=== PATIENT | male | born 1970 | race Caucasian/White ===

== ENCOUNTER 2017-05-11 04:08 | Emergency (ER) | payer SELFPAY ==
[~2017-05-11] VITALS: Ht 175.3 cm; Wt 81.6 kg
[~2017-05-11 04:08] MED LIST: IBUP-45 PO
[2017-05-11] MEDS ORDERED: KETOROLAC TROMETHAMINE 30 MG INJ IM ONE (04:45)
--- NOTE | 2017-05-11 04:49 | NUR ---
Patient discharged to home in stable conditon. Written and verbal after care instructions given. Patient verbalizes understanding of instructions.
[2017-05-11] MEDS ORDERED: KETOROLAC TROMETHAMINE 30 MG INJ ONE (04:57)
== END 2017-05-11 04:57 | disposition home or self-care (01) ==
LOC: ER 04:10
DX: G89.29 Other chronic pain (principal); M25.511 Pain in right shoulder; M25.512 Pain in left shoulder
CPT/HCPCS: 96372; 99283; A4663; J1885

== ENCOUNTER 2017-10-13 20:10 | Emergency (ER) | payer SELFPAY ==
--- NOTE | 2017-10-13 21:05 | NUR ---
PATIENT LEFT BEFORE BEING TRIAGED. PATIENT CAME IN TO THE ER FOR ASSISTANCE W/ REMOVAL OF RING FROM HIM RIGHT RING FINGER. PATIENT WAS ABLE TO REMOVE THE RING, AND NO LONGER REQUIRED ER SERVICES. ER MD IS AWARE. PATIENT NOTED IN NO ACUTE DISTRESS.
== END 2017-10-13 21:08 | disposition left against medical advice (07) ==
LOC: ER 20:11
DX: Z53.21 Procedure and treatment not carried out due to patient leaving prior to being seen by health care provider (principal)

== ENCOUNTER 2020-01-13 00:03 | Emergency (ER) | payer OTHER ==
[~2020-01-13] VITALS: Ht 175.3 cm; Wt 81.6 kg
--- NOTE | 2020-01-13 01:04 | NUR ---
Dr. Meeks at bedside for MSE.
[2020-01-13] MEDS ORDERED: KETOROLAC TROMETHAMINE 60 MG INJ IM ONE (01:30)
[2020-01-13] MEDS ORDERED: METOCLOPRAMIDE HCL 10 MG/2 ML VIAL IM ONE (01:30)
[2020-01-13] MEDS ORDERED: METOCLOPRAMIDE HCL 10 MG/2 ML VIAL ONE ×2 (01:45→02:00)
--- NOTE | 2020-01-13 03:03 | NUR ---
Patient given written and verbal discharge instructions. Patient verbalizes understanding of instructions. Patient is ambulatory with steady gait. Homeless resources provided, along with a list of available shelters in surrounding area. Refuses offer of group home placement and other resources. Stressed to follow up with PMD/return to ER for worsening symptoms. Meal also provided. Ambulated out of ER in steady gait.
--- NOTE | 2020-01-13 03:08 | NUR ---
Nursing station installation supervisor made aware of DC, checklist completed.
[2020-01-13 03:10] VITALS: BP 150/75
== END 2020-01-13 03:11 | disposition home or self-care (01) ==
LOC: ER 00:06
DX: M25.552 Pain in left hip (principal); R51 Headache; F17.210 Nicotine dependence, cigarettes, uncomplicated; Z59.0 Homelessness; R03.0 Elevated blood-pressure reading, without diagnosis of hypertension
CPT/HCPCS: 73502; 96372 ×2; 99284; 99406; J2765 ×2; A4663

== ENCOUNTER 2020-02-22 12:43 | Emergency (ER) | payer OTHER ==
[~2020-02-22] VITALS: Ht 175.3 cm; Wt 81.6 kg
--- NOTE | 2020-02-22 12:57 | NUR ---
Dr. Calderón at bedside for MSE
[2020-02-22] MEDS ORDERED: IBUPROFEN 600 MG TABLET PO ONE (13:00)
[2020-02-22] MEDS ORDERED: IBUPROFEN 600 MG TABLET ONE (13:03)
--- NOTE | 2020-02-22 13:05 | NUR ---
Patient discharged to home in stable condition. Written and verbal after care instructions given. Patient verbalizes understanding of instructions. Stressed follow up or return to ER for worsening s/s. Patient ambulated with steady gait. NAD noted
[2020-02-22 13:06] VITALS: BP 135/82
== END 2020-02-22 13:05 | disposition home or self-care (01) ==
LOC: ER 12:43
DX: K02.9 Dental caries, unspecified (principal); K04.7 Periapical abscess without sinus; Z59.0 Homelessness; R03.0 Elevated blood-pressure reading, without diagnosis of hypertension; G89.29 Other chronic pain; M54.9 Dorsalgia, unspecified
CPT/HCPCS: A4663

== ENCOUNTER 2020-11-26 13:32 | Emergency (ER) | payer OTHER ==
[~2020-11-26] VITALS: Ht 175.3 cm; Wt 90.7 kg
[2020-11-26] MEDS ORDERED: HYDR-3980 PO (15:02)
--- NOTE | 2020-11-26 15:21 | NUR ---
Patient discharged to home in stable condition. Written and verbal after care instructions given. Patient verbalizes understanding of instructions. Stressed follow up or return to ER for worsening s/s.
== END 2020-11-26 15:21 | disposition home or self-care (01) ==
LOC: ER 13:32
DX: M25.511 Pain in right shoulder (principal); G89.4 Chronic pain syndrome
CPT/HCPCS: 73030; A4663

== ENCOUNTER 2021-08-11 18:37 | Emergency (ER) | payer MEDICAID, OTHER ==
[~2021-08-11] VITALS: Ht 175.3 cm; Wt 94.3 kg
[~2021-08-11 18:37] MED LIST changes: +HYDR-3980 PO; -IBUP-45 PO
[2021-08-11] MEDS ORDERED: NEOMY/BACITRA/POLYMYXIN B OINT UD PACKET TP ONE ×2 (19:45→19:59)
[2021-08-11] MEDS ORDERED: TRAMADOL HCL 50 MG TABLET PO ONE (19:45)
[2021-08-11] MEDS ORDERED: TRAM50TA2 PO (19:47)
[2021-08-11] MEDS ORDERED: TRAMADOL HCL 50 MG TABLET ONE (20:02)
--- NOTE | 2021-08-11 20:05 | NUR ---
Patient discharged to home in stable condition. Written and verbal after care instructions given. Patient verbalizes understanding of instructions. Stressed follow up or return to ER for worsening s/s. pt ambulated with steady gait. pt's mother is driving him home.
[2021-08-11 20:07] VITALS: BP 125/88
== END 2021-08-11 20:08 | disposition home or self-care (01) ==
LOC: ER 18:38
DX: S59.912A Unspecified injury of left forearm, initial encounter (principal); V49.60XA Unspecified car occupant injured in collision with unspecified motor vehicles in traffic accident, initial encounter; W22.10XA Striking against or struck by unspecified automobile airbag, initial encounter; Y92.410 Unspecified street and highway as the place of occurrence of the external cause; R07.89 Other chest pain; G89.4 Chronic pain syndrome; E78.00 Pure hypercholesterolemia, unspecified
CPT/HCPCS: A4663